=== PATIENT | male | born 1980 | race Caucasian/White ===

== ENCOUNTER → 2019-07-29 | Outpatient (CLI) | payer BC ==
[2019-07-29 10:43] LABS: Basophils # (A) 0.1 k/uL (0-0.2); Basophils % (A) 2 %; Eosinophils # (A) 0.1 k/uL (0-0.7); Eosinophils % (A) 1 %; HGB 14.4 gm/dL (13.0-17.5); Lymphocytes % (A) 19 %; MCH 31.5 pg (25.0-35.0); MCHC 33.5 g/dL (31.0-37.0); MCV 94.1 fL (80.0-100.0); Mean Platelet Volume 10.3; Monocytes # (A) 0.3 k/uL (0-1.0); Monocytes % (A) 6 %; Neutrophils # (A) 3.7 k/uL (1.3-7.7); Neutrophils % (A) 69 %; Platelet Count 203 k/uL (150-450); RBC 4.57 m/uL (4.30-5.90); RDW 12.6 % (11.5-15.5); WBC 5.4 k/uL (3.8-10.6)
== END | disposition home or self-care (01) ==
LOC: LABPAT 09:58
PROVIDERS: ATTEND Urology
DX: Z01.812 Encounter for preprocedural laboratory examination (principal); N20.0 Calculus of kidney
CPT/HCPCS: 36415; 85025

== ENCOUNTER → 2019-07-29 | Outpatient (CLI) | payer BC ==
--- NOTE | 2019-07-29 12:07 | XR ---
EXAMINATION TYPE: XR KUB DATE OF EXAM: 07/29/2019 10:41 AM CLINICAL HISTORY: Preoperative examination for right-sided lithotripsy. Nephrolithiasis. TECHNIQUE: Single supine KUB image of the abdomen is obtained. COMPARISON: None. FINDINGS: There is an approximately 8 mm linear calculus overlying the expected location of the proxi mal right ureter. Questionable 3 mm calculus overlies the right L4 transverse process and could relat e to a ureteral calculus or gonadal vein phlebolith. There are few punctate calcifications overlying the left renal shadow and multiple phleboliths within the pelvis. Mild to moderate degenerative reddy es of the right hip. No dilated large or small bowel. IMPRESSION: 8 mm calculus overlying expected location of the right proximal ureter and 3 mm calculus that may be within the mid right ureter or could relate to a phlebolith.
== END | disposition home or self-care (01) ==
LOC: RADXRMAIN 10:32
PROVIDERS: ATTEND Urology
DX: N20.0 Calculus of kidney (principal)
CPT/HCPCS: 74018

== ENCOUNTER 2019-08-01 08:22 | Day surgery (SDC) | payer BC ==
[2019-07-29 11:07] VITALS: BMI 28.8
--- NOTE | 2019-07-29 22:56 | P.HPIHPCON ---
History of Present Illness H&P Date: 08/01/19 Chief Complaint: right flank pain Mr Hood is a 38 yo male with hx of flank pain. He Underwent a RBUS at an OSH which showed a 8mm stone in the mid pole without hydronephrosis. He indicated that for the past few days he is been having right sided flank pain. No previous hx renal calculi in the past. No urinary symptoms. Discussed option of ESWL vs Ureteroscopy. He agreed to proceed with ESWL. He was advised that he will need to obtain a KUB prior to his Surgery to asses if stone is radioopaque and location of stone. I discussed with him the risk of bleeding, infection, and renal hematoma Consent for Procedure: I have explained the operation/procedure to the patient, including the risks, benefits, side effects, alternative therapies (including not receiving the proposed treatment or service), the likelihood of the patient achieving his/her goals, and potential recuperation problems for the procedure/sedation/analgesia, as well as any blood products, if indicated. I also explained to the patient the risks, benefits and side effects of the alternatives, as well as the risks related to not receiving the proposed procedure, care, treatment, or services. - Constitutional Constitutional: Denies chills, Denies fever - Cardiovascular Cardiovascular: Denies chest pain, Denies dyspnea on exertion - Genitourinary (Female) Genitourinary: Reports flank pain Past Medical History Past Medical History: GERD/Reflux Additional Past Medical History / Comment(s): Kidney stone currently History of Any Multi-Drug Resistant Organisms: None Reported Past Surgical History: Ear Surgery Additional Past Surgical History / Comment(s): BMT as child Past Anesthesia/Blood Transfusion Reactions: No Reported Reaction Smoking Status: Former smoker - Past Family History Mother Family Medical History: No Reported History Medications and Allergies Home Medications Medication Instructions Recorded Confirmed Type Calcium Carbonate [Tums] 500 - 1,000 mg PO QID PRN 07/29/19 07/29/19 History Ibuprofen [Motrin Ib] 200 - 400 mg PO Q8H PRN 07/29/19 07/29/19 History traMADol HCl [Ultram] 50 mg PO DIRECTED PRN 07/29/19 07/29/19 History Allergies Allergy/AdvReac Type Severity Reaction Status Date / Time No Known Allergies Allergy Verified 07/29/19 10:52 Surgical - Exam - General well developed, well nourished, no distress - Respiratory normal expansion, normal respiratory effort - Abdomen Abdomen: soft, non tender Assessment and Plan Assessment: 38 yo male with hx of right 8 mm stone in the right kidney. He will obtain a KUB to assess exact location of stone prior to surgery. -OR for right ESWL,
[~2019-08-01 08:22] MED LIST: DEXAMETHASONE SOD PHOSPHATE 10 MG/ML 1 ML VIAL IV ONE; LACTATED RINGERS 1,000 ML IV SCH; LIDOCAINE 1% 20 ML VIAL (10MG/ML) FOR IV START INTRADERMA PRN; MIDAZOLAM 2 MG/2 ML VIAL IV PRN; ONDANSETRON 4 MG/2 ML VIAL IVP ONE; fentaNYL (PF) 50 MCG/ML 2 ML AMP IV PRN
--- NOTE | 2019-08-01 09:04 | XR ---
EXAMINATION TYPE: XR KUB DATE OF EXAM: 08/01/2019 CLINICAL DATA: 38-year-old male preop right renal calculus, [facility] COMPARISON: 07/29/2019 FINDINGS: Nonobstructive bowel gas pattern. Mild scattered stool. Air is present throughout the colon extending distally to the rectum. Multiple pelvic phleboliths are unchanged. 3 to 4 mm calcification right paramedian mid abdomen are demonstrated. The other previously seen 8 mm density on the right is not well-demonstrated due to overlying bowel content. 4 mm calcification left mid abdomen nonspecific. IMPRESSION: Subtle 3 to 4 mm right paramedian mid abdominal calcification, possibly within the upper third right ureter is similar. Previously seen 7 mm calcification on the right is not well seen probably due to o verlying bowel content. Nonspecific 4 mm calcification left mid abdomen.
[2019-08-01 09:34] VITALS: TEMP 98.5
[2019-08-01] MEDS ORDERED: PROPOFOL 10 MG/ML 20 ML VIAL IV ONE (09:55)
[2019-08-01] MEDS ORDERED: fentaNYL (PF) 50 MCG/ML 2 ML AMP ONE (09:55)
[2019-08-01] MEDS ORDERED: MIDAZOLAM 2 MG/2 ML VIAL ONE (09:55)
--- NOTE | 2019-08-01 10:18 | P.OP ---
Date of Procedure: 08/01/19 Preoperative Diagnosis: Right ureteral stone Postoperative Diagnosis: Same Procedure(s) Performed: Right shockwave lithotripsy, 1250 shocks at energy level IV Anesthesia: MAC Surgeon: Ar Barbour Estimated Blood Loss (ml): 0 Pathology: none sent Condition: stable Disposition: PACU Indications for Procedure: The patient is 38. He has an 8 mm proximal ureteral stone on the right. He comes for shockwave lithotripsy Description of Procedure: Patient is brought to the operating suite. He is given IV sedation. He's placed on the lithotripsy table in a supine position. The stone was seen in 2 views of fluoroscopy. A total of 1250 shocks at energy level IV administered. The stone fractures nicely. Then the procedure the patient awake and returned recovery in good condition. He'll be discharged home upon recovery. Postoperative instructions were given. He'll follow-up in the office later this week.
[2019-08-01 11:17] VITALS: BP 142/73; PULSE 58; RESP 18
== END 2019-08-01 12:05 | disposition home or self-care (01) ==
LOC: ORWHC2ENDO 08:22
PROVIDERS: ATTEND Urology
DX: N20.1 Calculus of ureter (principal); K21.9 Gastro-esophageal reflux disease without esophagitis; Z98.890 Other specified postprocedural states; Z94.81 Bone marrow transplant status; Z87.891 Personal history of nicotine dependence
CPT/HCPCS: 74018; 50590; J2250; J1100; J2405; J3010; J2704

== ENCOUNTER → 2019-08-05 | Outpatient (CLI) | payer BC ==
--- NOTE | 2019-08-05 09:48 | XR ---
EXAMINATION TYPE: XR KUB DATE OF EXAM: 08/05/2019 COMPARISON: 08/01/2019 INDICATION: N 20.0 postop right kidney stone left side pain TECHNIQUE: Single view abdomen upright view FINDINGS: There is a normal bowel gas pattern. Psoas margins are normal. No organomegaly is present. Multiple stable phleboliths are within the pelvis. There is ar 0.5 cm calcification just below the left L4 transverse process may be a mid left ureteral stone. This may have been present previously. Previous inferior pole right renal stone is not identi fied. IMPRESSION: 1. Suspected 0.5 cm mid left ureteral stone.
== END | disposition home or self-care (01) ==
LOC: RADXRMAIN 09:24
PROVIDERS: ATTEND Urology
DX: N20.0 Calculus of kidney (principal); Z98.890 Other specified postprocedural states
CPT/HCPCS: 74018

== ENCOUNTER 2019-08-10 10:46 | Day surgery (SDC) | payer BC ==
[2019-08-09 10:40] VITALS: BMI 27.6
--- NOTE | 2019-08-09 14:59 | P.HPIHPCON ---
History of Present Illness H&P Date: 08/09/19 Chief Complaint: Kidney stones Mr Hood is 38 yo male with hx of right sided ureteral stone, S/P right ESWL, he is been having right sided flank pain, and has passed minimal fragments. He is also been having left sided flank pain. He underwent a KUB which showed a 4mm left ureteral stone. Given his bilateral flank pain decision was made to proceed with bilateral ureteroscopy with holmium laser and stent placement. I discussed with him the risk of bleeding, infection and injury to the ureter. I discussed with him risk from anesthesia. He understood all risk and agreed to proceed Consent for Procedure: I have explained the operation/procedure to the patient, including the risks, benefits, side effects, alternative therapies (including not receiving the proposed treatment or service), the likelihood of the patient achieving his/her goals, and potential recuperation problems for the procedure/sedation/analgesia, as well as any blood products, if indicated. I also explained to the patient the risks, benefits and side effects of the alternatives, as well as the risks related to not receiving the proposed procedure, care, treatment, or services. Past Medical History Additional Past Medical History / Comment(s): KIDNEY STONES History of Any Multi-Drug Resistant Organisms: None Reported Additional Past Surgical History / Comment(s): LITHOTRIPSY Past Anesthesia/Blood Transfusion Reactions: No Reported Reaction Smoking Status: Former smoker - Past Family History Mother Family Medical History: No Reported History Medications and Allergies Home Medications Medication Instructions Recorded Confirmed Type Ibuprofen [Motrin Ib] 200 - 400 mg PO Q8H PRN 07/29/19 08/09/19 History HYDROcodone/APAP 5-325MG [Mcintyre 1 tab PO Q8HR PRN 08/09/19 08/09/19 History 5-325] Ondansetron HCl [Zofran] 8 mg PO Q12H PRN 08/09/19 08/09/19 History Allergies Allergy/AdvReac Type Severity Reaction Status Date / Time No Known Allergies Allergy Verified 08/09/19 10:13 Surgical - Exam - General no distress, no pain - Respiratory normal expansion, normal respiratory effort - Abdomen Abdomen: soft, non tender, no distended Assessment and Plan Assessment: 38 yo male with hx of right sided ureteral stone, still having right sided flank pain, also developed left sided ureteral stone since his surgery -OR for bilateral ureteroscopy holmium laser lithotripsy, stone basketting and stent placement
[~2019-08-10 10:46] MED LIST changes: +HYDROmorphone 0.5 MG/0.5 ML SYRINGE IVP PRN; +SCOPOLAMINE 1.5MG/72HR PATCH TRANSDERM ONE; -fentaNYL (PF) 50 MCG/ML 2 ML AMP IV PRN
--- NOTE | 2019-08-10 11:20 | XR ---
EXAMINATION TYPE: XR KUB DATE OF EXAM: 08/10/2019 HISTORY: Pain Comparison: None.Single KUB is submitted for interpretation. Findings: Right renal calculi: None Visualized. Right ureteral calculi: None Visualized. Left renal calculi: None Visualized. Left ureteral calculi: 4 mm right ureteral calculus at the L4-5 level. No significant change from prior study. Pelvic calcifications: Multiple pelvic phleboliths noted Bowel gas pattern is unremarkable. No free air. No mass effects. IMPRESSION: 1. 4 mm right ureteral calculus at the L4-5 level.
[2019-08-10] MEDS ORDERED: PROPOFOL 10 MG/ML 20 ML VIAL IV ONE (12:05)
[2019-08-10] MEDS ORDERED: ROCURONIUM BROMIDE 10 MG/ML 5 ML VIAL IV ONE (12:05)
[2019-08-10] MEDS ORDERED: HYDROmorphone (PF) 1 MG/ML ONE (12:05)
[2019-08-10] MEDS ORDERED: fentaNYL (PF) 50 MCG/ML 2 ML AMP ONE (12:05)
[2019-08-10] MEDS ORDERED: GLYCOPYRROLATE 0.2 MG/ML 2 ML VIAL ONE (12:05)
[2019-08-10] MEDS ORDERED: SUCCINYLCHOLINE CHLORIDE 100 MG/5 ML SYR IV ONE (12:05)
[2019-08-10] MEDS ORDERED: LIDOCAINE 1% INJ 10MG/ML (20 ML MDV) ONE (12:05)
[2019-08-10] MEDS ORDERED: NEOSTIGMINE 1 MG/ML 10 ML VIAL ONE (12:05)
[2019-08-10] MEDS ORDERED: MIDAZOLAM 2 MG/2 ML VIAL ONE (12:05)
[2019-08-10] MEDS ORDERED: IOPAMIDOL-370 50ML BTL MISCELLANE ONE ×2 (12:37)
--- NOTE | 2019-08-10 13:44 | P.OP ---
Date of Procedure: 08/10/19 Preoperative Diagnosis: left ureteral calculi/right renal calculi Postoperative Diagnosis: left ureteral stricture Procedure(s) Performed: Cystoscopy, bilateral reterograde pyelogram, left ureteroscopy, ureteral balloon dilation, and stent placement Implants: 6 Fr X 26 cm stent Anesthesia: WEN Surgeon: Von Reyes Estimated Blood Loss (ml): 5 Pathology: none sent Condition: stable Disposition: PACU Indications for Procedure: Mr Hood is 38 yo male with hx of right sided ureteral stone, S/P right ESWL, he is been having right sided flank pain, and has passed minimal fragments. He is also been having left sided flank pain. He underwent a KUB which showed a 4mm left ureteral stone. Given his bilateral flank pain decision was made to proceed with bilateral ureteroscopy with holmium laser and stent placement. I discussed with him the risk of bleeding, infection and injury to the ureter. I discussed with him risk from anesthesia. He understood all risk and agreed to proceed Operative Findings: Severe narrowing of distal ureter, unable to pass ureteroscope past the narrowed portion Description of Procedure: Patient was brought to the operating room, general anesthesia was induced. He was prepped and draped in sterile fashion placed in the dorsal lithotomy position. Cystoscopy. 22 sheath was inserted per urethra cystoscopy was performed showed no abnormality within the bladder. Attention was then carried to the left ureteral orifice which was intubated with a 6-Guyanese open-ended catheter. Retrograde pyelogram was performed which showed a filling defect in the proximal ureter hydroureteronephrosis proximal to that. A sensor wire was advanced through the catheter into the renal pelvis. This time a semirigid ureteroscope was inserted. I attempted to pass the scope past the ureteral orifice, but the ureteral orifice was narrowed. At this time the ureteroscope was withdrawn with the wire in place. Next a balloon dilator was advanced over the wire and the ureteral orifice was dilated using the balloon dilator. At this time the balloon dilator was removed and the ureteroscope was reinserted. The ureteroscope was advanced past left ureteral orifice at this time a very narrowed stricture was encountered in the distal ureter. I attempted to pass the scope past the stricture but the ureter was narrowed at that portion. at this time the ureteroscope was withdrawn. A balloon dilator was advanced, I attempted to pass the balloon dilator passed area of narrowing but resistance was met. Next an 11 x 13-Guyanese access sheath was advanced over the wire and could not be advanced past the area of narrowing. Next a flexible ureteroscope was inserted through the the access sheath and I attempted to pass the scope past the area of narrowing but that was severely narrowed. Multiple attempts were made to try to advance the scope. At this time the ureteroscope was withdrawn with the wire in place. Next a 6-Guyanese by 26 cm stent was passed over the wire the proximal curl was visualized on fluoroscopy and the distal curl was visualized using the cystoscope. Next the right sided ureteral orifice was intubated with a 6-Guyanese open-ended catheter retrograde pyelogram was performed which showed no filling defect or hydronephrosis. Delayed images was obtained which showed adequate drainage of contrast. The bladder was emptied at the end of the case patient was taken to PACU in stable condition
[2019-08-10 13:49] VITALS: TEMP 97.7
--- NOTE | 2019-08-10 13:58 | FL ---
EXAMINATION TYPE: FL cystogram DATE OF EXAM: 08/10/2019 COMPARISON: NONE HISTORY: Ureteral calculi TECHNIQUE: Fluoroscopy. FINDINGS: [address] Reyes IMPRESSION: As Above.
[2019-08-10 14:34] VITALS: RESP 18
[2019-08-10] MEDS ORDERED: IBUPROFEN 200 MG TAB PO ONE (14:44)
[2019-08-10 15:06] VITALS: BP 138/71; PULSE 73
== END 2019-08-10 15:26 | disposition home or self-care (01) ==
LOC: OR 10:46
PROVIDERS: ATTEND Urology
DX: N13.1 Hydronephrosis with ureteral stricture, not elsewhere classified (principal); N20.1 Calculus of ureter; K21.9 Gastro-esophageal reflux disease without esophagitis; K08.89 Other specified disorders of teeth and supporting structures; Z79.899 Other long term (current) drug therapy; Z98.890 Other specified postprocedural states; Z87.891 Personal history of nicotine dependence
CPT/HCPCS: 52344; 52332; 74430; 74018; C2625; C1758; J2250; J1100; J2710; J0690; J2405; J2001; J3010; J1170; J0330; J2704; Q9967